=== PATIENT | male | born 1980 | race Caucasian/White ===

== ENCOUNTER 2023-04-26 19:36 | Emergency (ER) | payer SELFPAY ==
[2023-04-26] MEDS ORDERED: Acetaminophen 500 MG TAB ONE (20:35)
== END 2023-04-26 20:35 | disposition home or self-care (01) ==
LOC: BURERS 19:36
DX: K04.7 Periapical abscess without sinus (principal); K02.9 Dental caries, unspecified; I10 Essential (primary) hypertension; F17.210 Nicotine dependence, cigarettes, uncomplicated
CPT/HCPCS: 99282

== ENCOUNTER 2023-08-22 11:10 | Observation (INO) | payer SELFPAY ==
[2023-08-22 11:34] LABS: #Eosinphils 0.2 thou/uL (0.0-0.7); #Lymphocytes 1.1 thou/uL (1.20-3.40); #Monocytes 0.2 thou/uL (0.11-0.59); #Neutrophils 6.5 thou/uL (1.40-6.50); %Basophils 0.6 % (0.0-1.0); %Eosinophils 2.6 % (0.0-10.0); %Lymphocytes 13.5 % (21.0-51.0); %Monocytes 2.2 % (0.0-10.0); %Neutrophils 81.1 % (42.0-75.0); Hematocrit 49.4 % (42.0-52.0); Hemoglobin 16.2 g/dL (14.0-18.0); Mean Corpuscular HGB CONC 32.8 g/dL (32.0-36.0); Mean Corpuscular Hemoglobin 26.4 pg (27.0-31.0); Mean Corpuscular Volume 80.5 fl (78.0-98.0); Mean Platelet Volume 8.4 fL (7.4-10.4); Platelet Count 495 10x3/uL (130-400); RBC Distribution Width 11.3 % (11.5-14.5); Red Blood Cell (RBC) Count 6.13 mill/uL (4.70-6.10)
[2023-08-22] MEDS ORDERED: cefTRIAXone (ROCEPHIN) 1 GM VIAL ONE (11:40)
[2023-08-22 11:48] LABS: ALT (SGPT) 17 U/L (8-55); AST (SGOT) 20 U/L (5-34); Albumin 3.5 g/dL (3.5-5.0); Alkaline Phosphatase 109 U/L (40-110); Anion Gap 16 mmol/L (10-20); BUN (Urea Nitrogen) 13 mg/dL (8.9-20.6); Bilirubin, Total 0.5 mg/dL (0.2-1.2); Calc. Creatinine Clearance 0 mL/min (70-130); Carbon Dioxide 25 mmol/L (22-29); Chloride 99 mmol/L (98-107); Estimated GFR 92; Globulin 4.6 g/dL (2.4-3.5); Glucose 119 mg/dL (70-105); Potassium 3.9 mmol/L (3.5-5.1); Protein, Total 8.1 g/dL (6.0-8.3); Sodium 136 mmol/L (136-145)
[2023-08-22] MEDS ORDERED: LevoFLOXacin 750 mg/D5W 150 ml Premix Bag ONE (11:55)
[2023-08-22 13:32] LABS: SARS-CoV-2 NAA Rapid Test DETECTED (NotDetected)
[2023-08-22] MEDS ORDERED: Acetaminophen 325 MG TAB PO PRN (13:45)
[2023-08-22] MEDS ORDERED: Ondansetron ODT 4 MG TAB SL PRN (13:45)
[2023-08-22] MEDS ORDERED: Ondansetron PF 4 MG/2 ML Vial IVP PRN (13:45)
[2023-08-22 13:50] VITALS: BMI 17.9
[2023-08-22 14:03] LABS: Lactic Acid 1.5 mmol/L (0.5-2.2)
[2023-08-22] MEDS ORDERED: Polyethylene Glycol 3350 17 GM Packet PO PRN (14:09)
[2023-08-22] MEDS: Sodium Chloride 0.9% 1,000 ML IV SCH ×2 (14:33→21:39)
[2023-08-22] MEDS ORDERED: Benzonatate 100 MG CAP PO SCH (16:00)
[2023-08-22] MEDS: Nystatin 500,000 UNITS/5 ML UDCUP SSW SCH ×2 (17:29→21:38)
[2023-08-22] MEDS: Benzonatate 100 MG CAP PO SCH (21:38)
[2023-08-23 06:10] LABS: Lactic Acid 0.8 mmol/L (0.5-2.2)
[2023-08-23 06:17] LABS: Anion Gap 9 mmol/L (10-20); Globulin 3.1 g/dL (2.4-3.5)
[2023-08-23 06:32] LABS: #Basophils 0.1 thou/uL (0.0-0.2); #Eosinphils 0.2 thou/uL (0.0-0.7); #Lymphocytes 0.9 thou/uL (1.20-3.40); #Monocytes 0.2 thou/uL (0.11-0.59); #Neutrophils 5.7 thou/uL (1.40-6.50); %Eosinophils 2.2 % (0.0-10.0); %Lymphocytes 13.3 % (21.0-51.0); %Monocytes 3.3 % (0.0-10.0); %Neutrophils 80.3 % (42.0-75.0); Hematocrit 37.2 % (42.0-52.0); Hemoglobin 12.4 g/dL (14.0-18.0); Mean Corpuscular HGB CONC 33.2 g/dL (32.0-36.0); Mean Corpuscular Hemoglobin 26.9 pg (27.0-31.0); Mean Corpuscular Volume 80.9 fl (78.0-98.0); Mean Platelet Volume 7.8 fL (7.4-10.4); Platelet Count 387 10x3/uL (130-400); RBC Distribution Width 11.8 % (11.5-14.5); Red Blood Cell (RBC) Count 4.61 mill/uL (4.70-6.10); White Blood Cell (WBC) Count 7.1 10x3/uL (4.8-10.8)
[2023-08-23 06:42] LABS: ALT (SGPT) 12 U/L (8-55); AST (SGOT) 18 U/L (5-34); Albumin 2.6 g/dL (3.5-5.0); Alkaline Phosphatase 77 U/L (40-110); BUN (Urea Nitrogen) 10 mg/dL (8.9-20.6); Bilirubin, Total 0.3 mg/dL (0.2-1.2); Calc. Creatinine Clearance 114 mL/min (70-130); Calcium 9.6 mg/dL (7.8-10.44); Carbon Dioxide 26 mmol/L (22-29); Chloride 105 mmol/L (98-107); Estimated GFR 115; Glucose 95 mg/dL (70-105); Potassium 3.3 mmol/L (3.5-5.1); Protein, Total 5.7 g/dL (6.0-8.3); Sodium 137 mmol/L (136-145)
[2023-08-23] MEDS ORDERED: Potassium Chloride 20 MEQ TAB PO SCH (07:15)
[2023-08-23] MEDS: Benzonatate 100 MG CAP PO SCH (09:48)
[2023-08-23] MEDS: Nystatin 500,000 UNITS/5 ML UDCUP SSW SCH (09:48)
[2023-08-23] MEDS ORDERED: Albuterol 200 PUFF (6.7GM INHALER) INH PRN (10:32)
[2023-08-23 11:42] VITALS: BP 112/78; TEMP 98.5
== END 2023-08-23 13:00 | disposition home or self-care (01) ==
LOC: BURERS 11:10 → INTOOBSV 12:00 → BURMED 12:00 → UNDOADMIN 12:26 → BURMED 12:26
PROVIDERS: ADMIT Family Medicine; ATTEND Family Medicine
DX: U07.1 COVID-19 (principal); J12.82 Pneumonia due to coronavirus disease 2019; J06.9 Acute upper respiratory infection, unspecified; E87.6 Hypokalemia; E86.0 Dehydration; F17.200 Nicotine dependence, unspecified, uncomplicated; Z88.2 Allergy status to sulfonamides; Z88.1 Allergy status to other antibiotic agents
CPT/HCPCS: 36415; 71045; 80053; 83605; 85025; 87040; 94760; 96361; 96365; 96367; 96372; G0378; J0696; J1650; J1956; J7050; U0002